=== PATIENT | male | born 1945 | race Caucasian/White ===

== ENCOUNTER 2020-10-04 18:23 | Inpatient (IN) ==
[2020-10-04 19:51] LABS: ABS Basophils 0.1 10^3/ul (0-0.2); ABS Eosinophils 0.1 10^3/ul (0-0.6); ABS Lymphocytes 0.5 10^3/ul (1.0-4.8); ABS Monocytes 1.2 10^3/ul (0-0.8); ABS Neutrophils 12.2 10^3/ul (1.5-7.7); Eosinophil % 0.9 %; Hematocrit 38 % (42-52); Hemoglobin 13.1 g/dL (14.0-18.0); Lymphocyte % 3.3 %; Mean Corpuscular HGB Conc 34 g/dL (31-36); Mean Corpuscular Hemoglobin 31 pg (27-31); Mean Corpuscular Volume 92 fL (80-94); Mean Platelet Volume 8.4 fL (7.4-10.4); Platelet Count 198 10^3/uL (150-450); Red Blood Count 4.19 10^6 /uL (4.18-5.48); Red Cell Distribution Width 15 % (10-15)
[2020-10-04 20:02] LABS: INR 1.22 (0.82-1.09)
[2020-10-04 20:04] LABS: ALT 18 U/L (7-52); AST 16 U/L (13-39); Albumin 3.8 g/dL (3.2-5.2); Albumin/Globulin Ratio 1.2 (1-3); Alkaline Phosphatase 54 U/L (34-104); Anion Gap 11 mmol/L (2-11); Blood Urea Nitrogen 16 mg/dL (6-24); C Reactive Protein 108.05 mg/L (<8.01); CO2 Carbon Dioxide 23 mmol/L (22-32); Calcium 9.1 mg/dL (8.6-10.3); Chloride 102 mmol/L (101-111); EGFR African American 99.5 (>60); EGFR Non-African American 82.3 (>60); Globulin 3.2 g/dL (2-4); Glucose 160 mg/dL (70-100); Magnesium 1.6 mg/dL (1.9-2.7); Potassium 3.5 mmol/L (3.5-5.0); Sodium 136 mmol/L (135-145)
[2020-10-04 20:10] LABS: Troponin I 0.14 ng/mL (<0.03)
[2020-10-04] MEDS ORDERED: Magnesium Sulfate 2 gm BAG 2 GM/50 ML BAG IVPB ONE (20:17)
[2020-10-04] MEDS ORDERED: Potassium Chlor 20 meq TAB.ER PO ONE (20:19)
[2020-10-04] MEDS ORDERED: Iodixanol (CONTRAST) 320 MG/ML 100 ML SDV IV ONE (20:21)
[2020-10-04] MEDS ORDERED: Ondansetron 4 mg VIAL 2 MG/ML 2 ml VIAL IV PRN (22:19)
[2020-10-04] MEDS ORDERED: Furosemide 40 mg/4 ml IV VIAL IV SLOW PU ONE (22:28)
[2020-10-04] MEDS ORDERED: Heparin DRIP 25,000 UNITS BAG 25,000 UNITS/500 ML BAG IV SCH (22:30)
[2020-10-04] MEDS ORDERED: Cefepime 2 GM IV - ED ONCE IV ONE (22:30)
[2020-10-04] MEDS ORDERED: Dextrose 50% Syringe 50 ml 25 GM/50 ML SYRINGE IV PUSH PRN (22:38)
[2020-10-04] MEDS ORDERED: Albuterol HFA INHALER 8 gm MDI INH PRN (22:38)
[2020-10-04] MEDS ORDERED: FLUTICASONE PROPIONATE INH SCH (22:45)
[2020-10-04] MEDS ORDERED: [UNRECOGNIZED DRUG - OTHER] INH SCH (22:45)
[2020-10-04] MEDS ORDERED: SALMETEROL INH SCH (22:45)
[2020-10-04] MEDS ORDERED: Vancomycin 2,000 MG in NS 0.9% 500 ml BAG 500 ML IVPB ONE (23:00)
[2020-10-05] MEDS: Heparin 5000 UNITS/ML 1 mL VIAL IV SCH ×2 (01:31→07:47)
[2020-10-05] MEDS: Insulin GLARGINE 100 un/ml 10 ml VIAL SUBCUT SCH ×2 (02:32→17:46)
[2020-10-05] MEDS ORDERED: Vancomycin per Pharmacy 1 EA NOTE FOLLOW UP PRN (04:19)
[2020-10-05 05:26] LABS: Urine Appearance Clear; Urine Bilirubin Negative (Negative); Urine Blood 1+ (Negative); Urine Color Straw; Urine Glucose Negative (Negative); Urine Ketones Negative (Negative); Urine Nitrite Negative (Negative); Urine Protein 2+(100 mg/dL) (Negative); Urine Specific Gravity 1.013 (1.002-1.030); Urine Urobilinogen Negative (Negative)
[2020-10-05 05:39] LABS: Urine Bacteria Absent (Absent); Urine Red Blood Cell Trace(0-2/hpf) (Absent); Urine Squamous Epithelial Cell Present (Absent); Urine White Blood Cell Absent (Absent)
[2020-10-05 06:51] LABS: ABS Basophils 0.1 10^3/ul (0-0.2); ABS Eosinophils 0.1 10^3/ul (0-0.6); ABS Lymphocytes 0.8 10^3/ul (1.0-4.8); ABS Monocytes 0.9 10^3/ul (0-0.8); ABS Neutrophils 9.5 10^3/ul (1.5-7.7); Eosinophil % 0.9 %; Hematocrit 35 % (42-52); Hemoglobin 12.1 g/dL (14.0-18.0); Lymphocyte % 7.3 %; Mean Corpuscular HGB Conc 35 g/dL (31-36); Mean Corpuscular Hemoglobin 31 pg (27-31); Mean Corpuscular Volume 90 fL (80-94); Mean Platelet Volume 8.5 fL (7.4-10.4); Platelet Count 180 10^3/uL (150-450); Red Cell Distribution Width 15 % (10-15); White Blood Count 11.4 10^3/uL (3.5-10.8)
[2020-10-05 07:09] LABS: EGFR African American 102.2 (>60); EGFR Non-African American 84.4 (>60)
[2020-10-05 07:12] LABS: ALT 16 U/L (7-52); AST 14 U/L (13-39); Albumin 3.6 g/dL (3.2-5.2); Albumin/Globulin Ratio 1.2 (1-3); Alkaline Phosphatase 53 U/L (34-104); Anion Gap 7 mmol/L (2-11); Blood Urea Nitrogen 13 mg/dL (6-24); C Reactive Protein 150.04 mg/L (<8.01); CO2 Carbon Dioxide 25 mmol/L (22-32); Calcium 8.6 mg/dL (8.6-10.3); Chloride 102 mmol/L (101-111); Cholesterol 131 mg/dL; EGFR African American 103.5 (>60); EGFR Non-African American 85.5 (>60); Globulin 2.9 g/dL (2-4); Glucose 157 mg/dL (70-100); HDL Cholesterol 34.8 mg/dL; Indirect Bilirubin 0.9 mg/dL (0.3-1.0); LDL Cholesterol 77 mg/dL; Potassium 3.4 mmol/L (3.5-5.0); Sodium 134 mmol/L (135-145); Total Protein 6.5 g/dL (6.4-8.9); Triglycerides 97 mg/dL
[2020-10-05 07:20] LABS: Troponin I 0.16 ng/mL (<0.03)
[2020-10-05] MEDS: Mometasone/Formoter 100/5 MDI INH SCH ×2 (07:29→19:05)
[2020-10-05] MEDS: Vancomycin 750 MG in NS 0.9% 250 ML IVPB SCH ×2 (09:41→17:43)
[2020-10-05] MEDS ORDERED: Furosemide 20 mg/2 ml IV VIAL IV ONE (10:09)
[2020-10-05 11:34] LABS: Creatine Kinase 77 U/L (10-223)
[2020-10-05] MEDS: Cefepime 2 GM in Dextrose 2 GM/50 ML BAG IV SCH ×2 (12:06→23:35)
[2020-10-05 15:42] LABS: Troponin I 0.13 ng/mL (<0.03)
[2020-10-05] MEDS: Dexamethasone IV 4 MG/ML VIAL 1 ml VIAL IV SLOW PU SCH (17:09)
[2020-10-05 18:31] LABS: Anion Gap 12 mmol/L (2-11); Blood Urea Nitrogen 18 mg/dL (6-24); CO2 Carbon Dioxide 20 mmol/L (22-32); Calcium 8.7 mg/dL (8.6-10.3); Chloride 100 mmol/L (101-111); EGFR African American 87.1 (>60); Glucose 160 mg/dL (70-100); Sodium 132 mmol/L (135-145)
[2020-10-05] MEDS: Enoxaparin 60 MG/0.6 ML SYR SUBCUT SCH (20:39)
[2020-10-06] MEDS: Vancomycin 750 MG in NS 0.9% 250 ML IVPB SCH ×2 (01:51→11:15)
[2020-10-06] MEDS: Mometasone/Formoter 100/5 MDI INH SCH ×2 (07:18→20:01)
[2020-10-06] MEDS: Dexamethasone IV 4 MG/ML VIAL 1 ml VIAL IV SLOW PU SCH (08:16)
[2020-10-06] MEDS: Enoxaparin 60 MG/0.6 ML SYR SUBCUT SCH ×2 (08:16→21:06)
[2020-10-06] MEDS ORDERED: Vancomycin Trough Check NOTE FOLLOW UP ONE (09:30)
[2020-10-06 09:57] LABS: ABS Lymphocytes 0.6 10^3/ul (1.0-4.8); ABS Monocytes 0.5 10^3/ul (0-0.8); ABS Neutrophils 10.4 10^3/ul (1.5-7.7); Hematocrit 38 % (42-52); Mean Corpuscular HGB Conc 34 g/dL (31-36); Mean Corpuscular Hemoglobin 31 pg (27-31); Mean Corpuscular Volume 91 fL (80-94); Mean Platelet Volume 8.4 fL (7.4-10.4); Platelet Count 200 10^3/uL (150-450); Red Blood Count 4.19 10^6 /uL (4.18-5.48); Red Cell Distribution Width 15 % (10-15); White Blood Count 11.4 10^3/uL (3.5-10.8)
[2020-10-06 10:23] LABS: Albumin 3.8 g/dL (3.2-5.2); Albumin/Globulin Ratio 1.1 (1-3); Calcium 9.1 mg/dL (8.6-10.3); EGFR African American 95.8 (>60); EGFR Non-African American 79.2 (>60); Globulin 3.4 g/dL (2-4); Potassium 3.6 mmol/L (3.5-5.0); Total Protein 7.2 g/dL (6.4-8.9)
[2020-10-06] MEDS: Cefepime 2 GM in Dextrose 2 GM/50 ML BAG IV SCH (15:00)
[2020-10-06] MEDS ORDERED: Vancomycin 1000 MG in NS 0.9% 250 ML IVPB SCH (18:00)
[2020-10-06] MEDS: Insulin GLARGINE 100 un/ml 10 ml VIAL SUBCUT SCH (18:09)
[2020-10-07] MEDS: Mometasone/Formoter 100/5 MDI INH SCH ×2 (07:42→20:31)
[2020-10-07] MEDS ORDERED: Perflutren Lipid Microsphere 3 ML VIAL ONE (08:13)
[2020-10-07] MEDS: Dexamethasone IV 4 MG/ML VIAL 1 ml VIAL IV SLOW PU SCH (08:54)
[2020-10-07] MEDS: Enoxaparin 60 MG/0.6 ML SYR SUBCUT SCH (08:55)
[2020-10-07 09:56] LABS: ABS Eosinophils 0.1 10^3/ul (0-0.6); ABS Lymphocytes 1.1 10^3/ul (1.0-4.8); ABS Monocytes 0.9 10^3/ul (0-0.8); ABS Neutrophils 11.9 10^3/ul (1.5-7.7); Eosinophil % 0.8 %; Hematocrit 41 % (42-52); Hemoglobin 13.8 g/dL (14.0-18.0); Mean Corpuscular HGB Conc 34 g/dL (31-36); Mean Corpuscular Hemoglobin 31 pg (27-31); Mean Corpuscular Volume 92 fL (80-94); Mean Platelet Volume 8.9 fL (7.4-10.4); Platelet Count 237 10^3/uL (150-450); Red Blood Count 4.45 10^6 /uL (4.18-5.48); Red Cell Distribution Width 15 % (10-15)
[2020-10-07 10:14] LABS: Albumin 3.9 g/dL (3.2-5.2); Albumin/Globulin Ratio 1.1 (1-3); Calcium 9.2 mg/dL (8.6-10.3); EGFR African American 99.5 (>60); EGFR Non-African American 82.3 (>60); Globulin 3.4 g/dL (2-4); Potassium 3.5 mmol/L (3.5-5.0); Total Bilirubin 0.7 mg/dL (0.2-1.0); Total Protein 7.3 g/dL (6.4-8.9)
[2020-10-07] MEDS: Insulin GLARGINE 100 un/ml 10 ml VIAL SUBCUT SCH ×2 (22:37→23:05)
[2020-10-08 05:49] LABS: ABS Eosinophils 0.2 10^3/ul (0-0.6); ABS Lymphocytes 1.2 10^3/ul (1.0-4.8); ABS Monocytes 0.9 10^3/ul (0-0.8); ABS Neutrophils 9.5 10^3/ul (1.5-7.7); Eosinophil % 1.7 %; Hematocrit 38 % (42-52); Hemoglobin 12.6 g/dL (14.0-18.0); Lymphocyte % 10.4 %; Mean Corpuscular HGB Conc 34 g/dL (31-36); Mean Corpuscular Hemoglobin 31 pg (27-31); Mean Corpuscular Volume 91 fL (80-94); Mean Platelet Volume 8.7 fL (7.4-10.4); Platelet Count 235 10^3/uL (150-450); Red Blood Count 4.12 10^6 /uL (4.18-5.48); Red Cell Distribution Width 15 % (10-15); White Blood Count 11.9 10^3/uL (3.5-10.8)
[2020-10-08 06:06] LABS: Albumin 3.6 g/dL (3.2-5.2); Albumin/Globulin Ratio 1.1 (1-3); Calcium 8.6 mg/dL (8.6-10.3); EGFR African American 117.4 (>60); Globulin 3.2 g/dL (2-4); Potassium 3.6 mmol/L (3.5-5.0); Total Bilirubin 0.5 mg/dL (0.2-1.0); Total Protein 6.8 g/dL (6.4-8.9)
[2020-10-08] MEDS: Mometasone/Formoter 100/5 MDI INH SCH ×2 (07:56→20:49)
[2020-10-08] MEDS: Dexamethasone IV 4 MG/ML VIAL 1 ml VIAL IV SLOW PU SCH (08:48)
[2020-10-08] MEDS ORDERED: Vancomycin Trough Check NOTE FOLLOW UP ONE (09:30)
[2020-10-08] MEDS: Insulin GLARGINE 100 un/ml 10 ml VIAL SUBCUT SCH (19:57)
[2020-10-09 05:08] LABS: Hematocrit 40 % (42-52); Hemoglobin 13.4 g/dL (14.0-18.0); Mean Corpuscular HGB Conc 33 g/dL (31-36); Mean Corpuscular Hemoglobin 30 pg (27-31); Mean Corpuscular Volume 91 fL (80-94); Mean Platelet Volume 8.7 fL (7.4-10.4); Platelet Count 256 10^3/uL (150-450); Red Blood Count 4.41 10^6 /uL (4.18-5.48); Red Cell Distribution Width 16 % (10-15); White Blood Count 11.5 10^3/uL (3.5-10.8)
[2020-10-09 05:46] LABS: ABS Basophils 0.1 10^3/ul (0-0.2); ABS Eosinophils 0.3 10^3/ul (0-0.6); ABS Lymphocytes 1.2 10^3/ul (1.0-4.8); ABS Monocytes 0.9 10^3/ul (0-0.8); Eosinophil % 2.5 %; Lymphocyte % 10.8 %; Nucleated Red Blood Cells % 0.1
[2020-10-09] MEDS: Mometasone/Formoter 100/5 MDI INH SCH (08:28)
[2020-10-09] MEDS ORDERED: Dexamethasone IV 4 MG/ML VIAL 1 ml VIAL PO SCH (09:00)
[2020-10-09 09:58] VITALS: BP 143/78
== END 2020-10-09 10:08 | disposition swing bed (61) | DRG 137 ==
LOC: ED 18:23 → MED 22:19
PROVIDERS: ADMIT Internal Medicine Interventional Cardiology; ATTEND Student in an Organized Health Care Education/Training Program

== ENCOUNTER 2020-10-09 10:40 | Inpatient (IN) ==
[2020-10-09] MEDS ORDERED: Dextrose 50% Syringe 50 ml 25 GM/50 ML SYRINGE IV PUSH PRN (10:59)
[2020-10-09] MEDS ORDERED: Albuterol HFA INHALER 8 gm MDI INH PRN (11:06)
[2020-10-09] MEDS: Insulin GLARGINE 100 un/ml 10 ml VIAL SUBCUT SCH (17:36)
[2020-10-09] MEDS: Mometasone/Formoter 100/5 MDI INH SCH (20:46)
[2020-10-09] MEDS ORDERED: hydrALAZINE 20 mg/ml 1 ML Vial IV IV SLOW PU PRN (21:52)
[2020-10-10] MEDS: Mometasone/Formoter 100/5 MDI INH SCH ×2 (07:25→20:07)
[2020-10-10] MEDS: Insulin GLARGINE 100 un/ml 10 ml VIAL SUBCUT SCH (18:15)
[2020-10-10] MEDS: Nystatin TOP POWDER 15 GM BTL TOPICAL SCH (21:01)
[2020-10-11] MEDS: Mometasone/Formoter 100/5 MDI INH SCH ×2 (07:31→19:37)
[2020-10-11] MEDS: Nystatin TOP POWDER 15 GM BTL TOPICAL SCH ×2 (08:46→20:52)
[2020-10-11] MEDS: Insulin GLARGINE 100 un/ml 10 ml VIAL SUBCUT SCH (17:44)
[2020-10-12] MEDS: Nystatin TOP POWDER 15 GM BTL TOPICAL SCH ×2 (07:40→21:07)
[2020-10-12] MEDS: Mometasone/Formoter 100/5 MDI INH SCH ×2 (07:47→19:25)
[2020-10-12] MEDS: Insulin GLARGINE 100 un/ml 10 ml VIAL SUBCUT SCH (17:31)
[2020-10-13] MEDS: Mometasone/Formoter 100/5 MDI INH SCH ×2 (08:16→19:17)
[2020-10-13] MEDS: Nystatin TOP POWDER 15 GM BTL TOPICAL SCH ×2 (11:47→20:39)
[2020-10-13] MEDS: Insulin GLARGINE 100 un/ml 10 ml VIAL SUBCUT SCH (17:19)
[2020-10-14] MEDS: Mometasone/Formoter 100/5 MDI INH SCH ×2 (08:22→19:11)
[2020-10-14] MEDS: Nystatin TOP POWDER 15 GM BTL TOPICAL SCH ×2 (08:37→20:29)
[2020-10-14] MEDS: Insulin GLARGINE 100 un/ml 10 ml VIAL SUBCUT SCH (17:29)
[2020-10-15 05:56] LABS: Hematocrit 42 % (42-52); Hemoglobin 14.4 g/dL (14.0-18.0); Mean Platelet Volume 8.4 fL (7.4-10.4); Platelet Count 284 10^3/uL (150-450)
[2020-10-15 06:42] LABS: EGFR African American 104.9 (>60); EGFR Non-African American 86.7 (>60)
[2020-10-15] MEDS: Mometasone/Formoter 100/5 MDI INH SCH (07:40)
[2020-10-15 08:29] VITALS: BP 159/106
[2020-10-15] MEDS: Nystatin TOP POWDER 15 GM BTL TOPICAL SCH (08:37)
== END 2020-10-15 10:30 | disposition home or self-care (01) | DRG 137 ==
LOC: MED 10:40
PROVIDERS: ADMIT Student in an Organized Health Care Education/Training Program; ATTEND Internal Medicine

== ENCOUNTER 2021-01-18 10:39 | Inpatient (IN) ==
[2021-01-18 11:33] LABS: ABS Basophils 0.1 10^3/ul (0-0.2); ABS Eosinophils 0.2 10^3/ul (0-0.6); ABS Lymphocytes 0.9 10^3/ul (1.0-4.8); ABS Monocytes 0.9 10^3/ul (0-0.8); ABS Neutrophils 7.5 10^3/ul (1.5-7.7); Eosinophil % 1.6 %; Hematocrit 41 % (42-52); Hemoglobin 13.5 g/dL (14.0-18.0); Lymphocyte % 9.5 %; Mean Corpuscular HGB Conc 33 g/dL (31-36); Mean Corpuscular Hemoglobin 31 pg (27-31); Mean Corpuscular Volume 93 fL (80-94); Mean Platelet Volume 8.7 fL (7.4-10.4); Platelet Count 234 10^3/uL (150-450); Red Blood Count 4.41 10^6 /uL (4.18-5.48); Red Cell Distribution Width 16 % (10-15); White Blood Count 9.6 10^3/uL (3.5-10.8)
[2021-01-18 11:52] LABS: Albumin 3.8 g/dL (3.2-5.2); Albumin/Globulin Ratio 1.2 (1-3); EGFR African American 78.7 (>60); EGFR Non-African American 65.1 (>60); Globulin 3.3 g/dL (2-4); Magnesium 1.9 mg/dL (1.9-2.7); Potassium 3.3 mmol/L (3.5-5.0); Total Bilirubin 0.8 mg/dL (0.2-1.0); Total Protein 7.1 g/dL (6.4-8.9)
[2021-01-18 12:31] LABS: TSH Ultra Thyroid Stim Horm 3.91 mcIU/mL (0.34-5.60)
[2021-01-18] MEDS ORDERED: Potassium Chlor 20 meq TAB.ER PO ONE (13:05)
[2021-01-18] MEDS ORDERED: Dextrose 50% Syringe 50 ml 25 GM/50 ML SYRINGE IV PUSH PRN (18:16)
[2021-01-18] MEDS: Nystatin TOP POWDER 15 GM BTL TOPICAL SCH (21:37)
[2021-01-18] MEDS: hydrALAZINE 20 mg/ml 1 ML Vial IV IV SLOW PU PRN (23:29)
[2021-01-19 01:45] LABS: Urine Appearance Clear; Urine Bilirubin Negative (Negative); Urine Blood Negative (Negative); Urine Color Yellow; Urine Glucose Negative (Negative); Urine Ketones Negative (Negative); Urine Nitrite Negative (Negative); Urine Protein 3+(>=500 mg/dL) (Negative); Urine Specific Gravity 1.012 (1.002-1.030); Urine Urobilinogen Negative (Negative)
[2021-01-19 01:48] LABS: Urine Bacteria Absent (Absent); Urine Red Blood Cell Trace(0-2/hpf) (Absent); Urine Squamous Epithelial Cell Present (Absent); Urine White Blood Cell Trace(0-5/hpf) (Absent)
[2021-01-19 04:59] LABS: ABS Basophils 0.1 10^3/ul (0-0.2); ABS Eosinophils 0.3 10^3/ul (0-0.6); ABS Monocytes 0.9 10^3/ul (0-0.8); Eosinophil % 2.5 %; Hematocrit 44 % (42-52); Hemoglobin 14.6 g/dL (14.0-18.0); Lymphocyte % 9.8 %; Mean Corpuscular HGB Conc 33 g/dL (31-36); Mean Corpuscular Hemoglobin 32 pg (27-31); Mean Corpuscular Volume 95 fL (80-94); Mean Platelet Volume 8.9 fL (7.4-10.4); Nucleated Red Blood Cells % 0.1; Platelet Count 217 10^3/uL (150-450); Red Blood Count 4.62 10^6 /uL (4.18-5.48); Red Cell Distribution Width 17 % (10-15); White Blood Count 10.3 10^3/uL (3.5-10.8)
[2021-01-19 05:02] LABS: PCO2 Arterial 36 mmHg (35-45); PO2 Arterial 121 mmHg (80-100)
[2021-01-19 05:19] LABS: ALT 56 U/L (7-52); Albumin/Globulin Ratio 1.1 (1-3); Alkaline Phosphatase 59 U/L (35-149); Blood Urea Nitrogen 22 mg/dL (6-24); CO2 Carbon Dioxide 24 mmol/L (22-32); Chloride 106 mmol/L (101-111); EGFR African American 74.8 (>60); EGFR Non-African American 61.8 (>60); Globulin 3.5 g/dL (2-4); Glucose 115 mg/dL (70-100); Sodium 139 mmol/L (135-145); Total Protein 7.5 g/dL (6.4-8.9)
[2021-01-19 05:26] LABS: Troponin I 0.19 ng/mL (<0.03)
[2021-01-19] MEDS: hydrALAZINE 20 mg/ml 1 ML Vial IV IV SLOW PU PRN (05:36)
[2021-01-19 06:24] LABS: Vitamin B12 668 pg/mL (180-914)
[2021-01-19 06:59] LABS: Prolactin 11.6 ng/mL (1.0-20.0)
[2021-01-19 07:02] LABS: AST 37 U/L (13-39); Anion Gap 9 mmol/L (2-11)
[2021-01-19] MEDS ORDERED: hydrALAZINE 20 mg/ml 1 ML Vial IV IV SLOW PU ONE (08:02)
[2021-01-19] MEDS ORDERED: LORazepam 2 mg VIAL 1 ml ONE (08:07)
[2021-01-19] MEDS ORDERED: Lorazepam PYXIS KEY PRN (08:09)
[2021-01-19] MEDS ORDERED: LORazepam 2 mg VIAL 1 ml IV PUSH ONE ×2 (08:09→13:43)
[2021-01-19] MEDS ORDERED: Iodixanol (CONTRAST) 320 MG/ML 100 ML SDV IV SCH (08:23)
[2021-01-19 08:24] LABS: ABS Basophils 0.1 10^3/ul (0-0.2); ABS Eosinophils 0.2 10^3/ul (0-0.6); ABS Lymphocytes 0.9 10^3/ul (1.0-4.8); ABS Monocytes 0.8 10^3/ul (0-0.8); ABS Neutrophils 7.9 10^3/ul (1.5-7.7); Eosinophil % 2.4 %; Hematocrit 44 % (42-52); Hemoglobin 14.5 g/dL (14.0-18.0); Lymphocyte % 8.8 %; Mean Corpuscular HGB Conc 33 g/dL (31-36); Mean Corpuscular Hemoglobin 31 pg (27-31); Mean Corpuscular Volume 94 fL (80-94); Mean Platelet Volume 8.7 fL (7.4-10.4); Platelet Count 217 10^3/uL (150-450); Red Blood Count 4.64 10^6 /uL (4.18-5.48); Red Cell Distribution Width 17 % (10-15); White Blood Count 9.9 10^3/uL (3.5-10.8)
[2021-01-19 08:38] LABS: ALT 54 U/L (7-52); AST 31 U/L (13-39); Albumin 3.9 g/dL (3.2-5.2); Albumin/Globulin Ratio 1.2 (1-3); Alkaline Phosphatase 68 U/L (35-149); Anion Gap 7 mmol/L (2-11); Blood Urea Nitrogen 20 mg/dL (6-24); CO2 Carbon Dioxide 27 mmol/L (22-32); Calcium 9.3 mg/dL (8.6-10.3); Chloride 108 mmol/L (101-111); Creatine Kinase 50 U/L (10-223); EGFR African American 77.1 (>60); EGFR Non-African American 63.7 (>60); Globulin 3.3 g/dL (2-4); Glucose 123 mg/dL (70-100); Potassium 3.6 mmol/L (3.5-5.0); Sodium 142 mmol/L (135-145); Total Protein 7.2 g/dL (6.4-8.9)
[2021-01-19] MEDS ORDERED: Fluticasone/Vilanterol MDI(NF) 100/25 MDI INH SCH (09:00)
[2021-01-19] MEDS ORDERED: niCARdipine 0.1MG/ML IVPREMIX 20 MG/200 ML BAG IV SCH (09:00)
[2021-01-19 09:04] LABS: Troponin I 0.19 ng/mL (<0.03)
[2021-01-19] MEDS: Mometasone/Formoter 100/5 MDI INH SCH ×2 (09:45→21:00)
[2021-01-19] MEDS: Insulin GLARGINE 100 un/ml 10 ml VIAL SUBCUT SCH (12:28)
[2021-01-19] MEDS: Isosorbide Mononit ER 60mg TAB PO SCH (12:28)
[2021-01-19] MEDS: Nystatin TOP POWDER 15 GM BTL TOPICAL SCH ×2 (12:28→22:44)
[2021-01-19 13:18] LABS: PCO2 Arterial 34 mmHg (35-45); PO2 Arterial 74 mmHg (80-100)
[2021-01-19] MEDS: levETIRAcetam 1000MG IVPREMIX 1,000 MG/100 ML BAG IVPB SCH (13:39)
[2021-01-19 16:57] LABS: Urine Appearance Clear; Urine Bilirubin Negative (Negative); Urine Blood Negative (Negative); Urine Color Yellow; Urine Glucose Negative (Negative); Urine Ketones Negative (Negative); Urine Nitrite Negative (Negative); Urine Protein 2+(100 mg/dL) (Negative); Urine Specific Gravity 1.013 (1.002-1.030); Urine Urobilinogen Negative (Negative)
[2021-01-19 17:02] LABS: INR 1.55 (0.86-1.15)
[2021-01-19 17:03] LABS: Urine Bacteria Absent (Absent); Urine Red Blood Cell Trace(0-2/hpf) (Absent); Urine White Blood Cell Trace(0-5/hpf) (Absent)
[2021-01-19 17:13] LABS: Ammonia 23 mcmol/L (16-53)
[2021-01-19 17:17] LABS: BNP 684 pg/mL (<=100)
[2021-01-19 17:18] LABS: Troponin I 0.18 ng/mL (<0.03)
[2021-01-19 17:32] LABS: Thyroid Peroxidase Antibodies 1.86 IU/mL (<9)
[2021-01-19 19:00] LABS: Glucose 112 mg/dL (70-100)
[2021-01-19] MEDS ORDERED: Furosemide 40 mg/4 ml IV VIAL IV ONE (22:00)
[2021-01-19] MEDS: niCARdipine 0.1MG/ML IVPREMIX 20 MG/200 ML BAG IV SCH (23:30)
[2021-01-20] MEDS: levETIRAcetam 1000MG IVPREMIX 1,000 MG/100 ML BAG IVPB SCH ×2 (01:10→14:01)
[2021-01-20] MEDS: niCARdipine 0.1MG/ML IVPREMIX 20 MG/200 ML BAG IV SCH (02:28)
[2021-01-20 05:47] LABS: ABS Basophils 0.1 10^3/ul (0-0.2); ABS Eosinophils 0.2 10^3/ul (0-0.6); ABS Lymphocytes 0.7 10^3/ul (1.0-4.8); ABS Monocytes 0.9 10^3/ul (0-0.8); ABS Neutrophils 9.6 10^3/ul (1.5-7.7); Eosinophil % 1.9 %; Hematocrit 43 % (42-52); Hemoglobin 14.7 g/dL (14.0-18.0); Mean Corpuscular HGB Conc 34 g/dL (31-36); Mean Corpuscular Hemoglobin 32 pg (27-31); Mean Corpuscular Volume 93 fL (80-94); Mean Platelet Volume 8.7 fL (7.4-10.4); Platelet Count 224 10^3/uL (150-450); Red Blood Count 4.66 10^6 /uL (4.18-5.48); Red Cell Distribution Width 16 % (10-15); White Blood Count 11.5 10^3/uL (3.5-10.8)
[2021-01-20 06:08] LABS: Calcium 8.9 mg/dL (8.6-10.3); EGFR African American 96.8 (>60); Magnesium 1.9 mg/dL (1.9-2.7); Phosphorus 3.8 mg/dL (2.5-5.0); Potassium 3.3 mmol/L (3.5-5.0)
[2021-01-20 06:11] LABS: INR 1.63 (0.86-1.15)
[2021-01-20] MEDS ORDERED: Magnesium Sulfate 2 gm BAG 2 GM/50 ML BAG IVPB ONE (06:26)
[2021-01-20] MEDS: KCL 20 MEQ/100 ML IVPREMIX 20 MEQ/100 ML BAG IV SCH ×3 (06:40→13:59)
[2021-01-20] MEDS: hydrALAZINE 20 mg/ml 1 ML Vial IV IV SLOW PU PRN ×2 (06:40→16:39)
[2021-01-20] MEDS ORDERED: Perflutren Lipid Microsphere 3 ML VIAL ONE (08:20)
[2021-01-20] MEDS: Mometasone/Formoter 100/5 MDI INH SCH ×2 (09:18→19:13)
[2021-01-20] MEDS ORDERED: Furosemide 40 mg/4 ml IV VIAL IV ONE (09:37)
[2021-01-20] MEDS: Insulin GLARGINE 100 un/ml 10 ml VIAL SUBCUT SCH (10:06)
[2021-01-20] MEDS: Nystatin TOP POWDER 15 GM BTL TOPICAL SCH ×2 (10:08→21:17)
[2021-01-20] MEDS ORDERED: Gadoteridol (CONTRAST) 279.3 MG/ML 10 ML IV ONE (12:29)
[2021-01-20] MEDS ORDERED: Gadoteridol (CONTRAST) 279.3 MG/ML 10 ML IV SCH (13:00)
[2021-01-20] MEDS: Isosorbide Mononit ER 60mg TAB PO SCH (19:03)
[2021-01-21] MEDS: hydrALAZINE 20 mg/ml 1 ML Vial IV IV SLOW PU PRN (01:21)
[2021-01-21] MEDS: levETIRAcetam 1000MG IVPREMIX 1,000 MG/100 ML BAG IVPB SCH (01:21)
[2021-01-21] MEDS: Mometasone/Formoter 100/5 MDI INH SCH ×2 (07:48→20:01)
[2021-01-21 07:55] LABS: PCO2 Arterial 36 mmHg (35-45); PO2 Arterial 108 mmHg (80-100)
[2021-01-21 08:16] LABS: ABS Basophils 0.1 10^3/ul (0-0.2); ABS Eosinophils 0.2 10^3/ul (0-0.6); ABS Lymphocytes 0.8 10^3/ul (1.0-4.8); ABS Neutrophils 8.9 10^3/ul (1.5-7.7); Hematocrit 46 % (42-52); Hemoglobin 15.1 g/dL (14.0-18.0); Lymphocyte % 7.6 %; Mean Corpuscular HGB Conc 33 g/dL (31-36); Mean Corpuscular Hemoglobin 31 pg (27-31); Mean Corpuscular Volume 94 fL (80-94); Nucleated Red Blood Cells % 0.1; Platelet Count 239 10^3/uL (150-450); Red Cell Distribution Width 17 % (10-15)
[2021-01-21 08:32] LABS: Albumin 3.7 g/dL (3.2-5.2); Magnesium 2.1 mg/dL (1.9-2.7); Potassium 3.4 mmol/L (3.5-5.0); Total Bilirubin 1.1 mg/dL (0.2-1.0)
[2021-01-21 08:51] LABS: Prolactin 13.8 ng/mL (1.0-20.0)
[2021-01-21 09:16] LABS: Calcium 9.1 mg/dL (8.6-10.3)
[2021-01-21 09:21] LABS: Albumin/Globulin Ratio 1.1 (1-3); EGFR African American 93.3 (>60); EGFR Non-African American 77.1 (>60); Globulin 3.4 g/dL (2-4); Total Protein 7.1 g/dL (6.4-8.9)
[2021-01-21] MEDS: Insulin GLARGINE 100 un/ml 10 ml VIAL SUBCUT SCH (09:34)
[2021-01-21] MEDS: Nystatin TOP POWDER 15 GM BTL TOPICAL SCH ×2 (09:35→20:59)
[2021-01-22] MEDS ORDERED: Haloperidol 5 mg/ml SDV IV/IM 5 MG/ML AMP IV SLOW PU PRN (00:45)
[2021-01-22] MEDS ORDERED: Haloperidol 5 mg/ml SDV IV/IM 5 MG/ML AMP ONE (00:51)
[2021-01-22 06:49] LABS: ABS Basophils 0.1 10^3/ul (0-0.2); ABS Eosinophils 0.3 10^3/ul (0-0.6); ABS Lymphocytes 0.8 10^3/ul (1.0-4.8); ABS Neutrophils 7.7 10^3/ul (1.5-7.7); Eosinophil % 2.9 %; Hematocrit 43 % (42-52); Hemoglobin 14.4 g/dL (14.0-18.0); Lymphocyte % 8.5 %; Mean Corpuscular HGB Conc 34 g/dL (31-36); Mean Corpuscular Hemoglobin 31 pg (27-31); Mean Corpuscular Volume 93 fL (80-94); Mean Platelet Volume 8.9 fL (7.4-10.4); Nucleated Red Blood Cells % 0.1; Platelet Count 220 10^3/uL (150-450); Red Blood Count 4.58 10^6 /uL (4.18-5.48); Red Cell Distribution Width 17 % (10-15); White Blood Count 9.9 10^3/uL (3.5-10.8)
[2021-01-22 07:04] LABS: Calcium 8.9 mg/dL (8.6-10.3); EGFR African American 96.8 (>60); Potassium 3.3 mmol/L (3.5-5.0)
[2021-01-22] MEDS: Mometasone/Formoter 100/5 MDI INH SCH ×2 (07:51→23:04)
[2021-01-22] MEDS: KCL 20 MEQ/100 ML IVPREMIX 20 MEQ/100 ML BAG IV SCH ×3 (08:57→20:20)
[2021-01-22] MEDS: Insulin GLARGINE 100 un/ml 10 ml VIAL SUBCUT SCH (11:00)
[2021-01-22] MEDS: Nystatin TOP POWDER 15 GM BTL TOPICAL SCH (11:14)
[2021-01-23] MEDS: hydrALAZINE 20 mg/ml 1 ML Vial IV IV SLOW PU PRN (00:21)
[2021-01-23] MEDS: Nystatin TOP POWDER 15 GM BTL TOPICAL SCH ×3 (00:25→23:38)
[2021-01-23 06:16] LABS: ABS Basophils 0.1 10^3/ul (0-0.2); ABS Eosinophils 0.4 10^3/ul (0-0.6); ABS Lymphocytes 0.9 10^3/ul (1.0-4.8); ABS Neutrophils 6.6 10^3/ul (1.5-7.7); Hematocrit 43 % (42-52); Lymphocyte % 10.5 %; Mean Corpuscular HGB Conc 33 g/dL (31-36); Mean Corpuscular Hemoglobin 31 pg (27-31); Mean Corpuscular Volume 94 fL (80-94); Mean Platelet Volume 8.8 fL (7.4-10.4); Platelet Count 223 10^3/uL (150-450); Red Blood Count 4.54 10^6 /uL (4.18-5.48); Red Cell Distribution Width 17 % (10-15)
[2021-01-23 06:28] LABS: Albumin 3.2 g/dL (3.2-5.2); Calcium 8.4 mg/dL (8.6-10.3); EGFR Non-African American 87.6 (>60); Globulin 3.1 g/dL (2-4); Potassium 3.6 mmol/L (3.5-5.0); Total Bilirubin 0.6 mg/dL (0.2-1.0); Total Protein 6.3 g/dL (6.4-8.9)
[2021-01-23] MEDS: Mometasone/Formoter 100/5 MDI INH SCH ×2 (08:30→22:33)
[2021-01-23] MEDS ORDERED: CALCIUM GLUCONATE 1GM/50ML NS 1 GM/50 ML BAG IV ONE (09:52)
[2021-01-23] MEDS: Insulin GLARGINE 100 un/ml 10 ml VIAL SUBCUT SCH (11:25)
[2021-01-24 07:30] LABS: Venous Bicarbonate HCO3 29.6 mmol/L (24-28)
[2021-01-24 07:45] LABS: Calcium 8.7 mg/dL (8.6-10.3); EGFR African American 92.1 (>60); EGFR Non-African American 76.2 (>60); Potassium 3.7 mmol/L (3.5-5.0)
[2021-01-24] MEDS: Insulin GLARGINE 100 un/ml 10 ml VIAL SUBCUT SCH (07:57)
[2021-01-24] MEDS: Mometasone/Formoter 100/5 MDI INH SCH ×2 (09:51→21:35)
[2021-01-24] MEDS: Nystatin TOP POWDER 15 GM BTL TOPICAL SCH (11:08)
[2021-01-24] MEDS: hydrALAZINE 20 mg/ml 1 ML Vial IV IV SLOW PU PRN ×2 (12:29→23:55)
[2021-01-25] MEDS: Nystatin TOP POWDER 15 GM BTL TOPICAL SCH ×3 (00:15→20:22)
[2021-01-25 05:19] LABS: Venous Bicarbonate HCO3 30.5 mmol/L (24-28)
[2021-01-25 05:31] LABS: ABS Basophils 0.1 10^3/ul (0-0.2); ABS Eosinophils 0.4 10^3/ul (0-0.6); ABS Lymphocytes 0.8 10^3/ul (1.0-4.8); ABS Monocytes 0.8 10^3/ul (0-0.8); ABS Neutrophils 7.7 10^3/ul (1.5-7.7); Eosinophil % 3.9 %; Hematocrit 44 % (42-52); Hemoglobin 14.5 g/dL (14.0-18.0); Lymphocyte % 8.5 %; Mean Corpuscular HGB Conc 33 g/dL (31-36); Mean Corpuscular Hemoglobin 31 pg (27-31); Mean Corpuscular Volume 95 fL (80-94); Mean Platelet Volume 8.7 fL (7.4-10.4); Nucleated Red Blood Cells % 0.2; Platelet Count 229 10^3/uL (150-450); Red Blood Count 4.63 10^6 /uL (4.18-5.48); Red Cell Distribution Width 16 % (10-15); White Blood Count 9.8 10^3/uL (3.5-10.8)
[2021-01-25 06:02] LABS: Calcium 8.7 mg/dL (8.6-10.3); Phosphorus 3.3 mg/dL (2.5-5.0); Potassium 3.6 mmol/L (3.5-5.0)
[2021-01-25] MEDS: Insulin GLARGINE 100 un/ml 10 ml VIAL SUBCUT SCH (07:56)
[2021-01-25] MEDS: Mometasone/Formoter 100/5 MDI INH SCH ×2 (08:27→20:01)
[2021-01-26] MEDS: hydrALAZINE 20 mg/ml 1 ML Vial IV IV SLOW PU PRN (08:01)
[2021-01-26] MEDS: Isosorbide Mononit ER 60mg TAB PO SCH (08:06)
[2021-01-26] MEDS: Insulin GLARGINE 100 un/ml 10 ml VIAL SUBCUT SCH (08:09)
[2021-01-26] MEDS: Mometasone/Formoter 100/5 MDI INH SCH ×2 (09:12→20:17)
[2021-01-26] MEDS: Nystatin TOP POWDER 15 GM BTL TOPICAL SCH ×2 (10:00→20:44)
[2021-01-27] MEDS: hydrALAZINE 20 mg/ml 1 ML Vial IV IV SLOW PU PRN (03:33)
[2021-01-27] MEDS: Isosorbide Mononit ER 60mg TAB PO SCH (07:48)
[2021-01-27] MEDS: Mometasone/Formoter 100/5 MDI INH SCH ×2 (08:29→20:35)
[2021-01-27] MEDS: Insulin GLARGINE 100 un/ml 10 ml VIAL SUBCUT SCH (09:51)
[2021-01-27] MEDS: Nystatin TOP POWDER 15 GM BTL TOPICAL SCH ×2 (09:51→20:41)
[2021-01-27] MEDS: Dextran 70/Hypromellose Tears Eye Drops 15 ml BTL (for Artificials Tears) BOTH EYES PRN (16:02)
[2021-01-28 05:39] LABS: INR 1.37 (0.86-1.15)
[2021-01-28] MEDS: Mometasone/Formoter 100/5 MDI INH SCH (08:00)
[2021-01-28] MEDS: Isosorbide Mononit ER 60mg TAB PO SCH (08:14)
[2021-01-28] MEDS: Dextran 70/Hypromellose Tears Eye Drops 15 ml BTL (for Artificials Tears) BOTH EYES PRN (08:15)
[2021-01-28] MEDS: Nystatin TOP POWDER 15 GM BTL TOPICAL SCH (08:15)
[2021-01-28] MEDS: Insulin GLARGINE 100 un/ml 10 ml VIAL SUBCUT SCH (08:16)
[2021-01-28 12:46] VITALS: BP 131/76
== END 2021-01-28 14:15 | DRG 757 ==
LOC: MEDTELE 10:39 → ED 10:39 → MEDTELE 16:36 → ICU 01-19 09:14 → SUATTDRO 01-19 09:15 → MEDTELE 01-21 07:21
PROVIDERS: ADMIT Internal Medicine; ATTEND Internal Medicine

== ENCOUNTER 2021-02-25 07:18 | Observation (INO) ==
[2021-02-25 07:51] LABS: Venous Bicarbonate HCO3 27.7 mmol/L (24-28)
[2021-02-25 07:56] LABS: ABS Basophils 0.1 10^3/ul (0-0.2); ABS Eosinophils 0.6 10^3/ul (0-0.6); ABS Lymphocytes 0.6 10^3/ul (1.0-4.8); ABS Monocytes 0.8 10^3/ul (0-0.8); ABS Neutrophils 6.9 10^3/ul (1.5-7.7); Eosinophil % 6.7 %; Hematocrit 38 % (42-52); Hemoglobin 12.8 g/dL (14.0-18.0); Lymphocyte % 6.7 %; Mean Corpuscular HGB Conc 34 g/dL (31-36); Mean Corpuscular Hemoglobin 31 pg (27-31); Mean Corpuscular Volume 93 fL (80-94); Mean Platelet Volume 8.8 fL (7.4-10.4); Platelet Count 228 10^3/uL (150-450); Red Cell Distribution Width 16 % (10-15); White Blood Count 8.9 10^3/uL (3.5-10.8)
[2021-02-25 08:13] LABS: ALT 13 U/L (7-52); AST 15 U/L (13-39); Albumin 3.5 g/dL (3.2-5.2); Albumin/Globulin Ratio 0.9 (1-3); Alkaline Phosphatase 62 U/L (35-149); Anion Gap 7 mmol/L (2-11); Blood Urea Nitrogen 13 mg/dL (6-24); C Reactive Protein 33.39 mg/L (<8.01); CO2 Carbon Dioxide 28 mmol/L (22-32); Calcium 8.8 mg/dL (8.6-10.3); Chloride 103 mmol/L (101-111); EGFR African American 88.9 (>60); EGFR Non-African American 73.5 (>60); Globulin 3.7 g/dL (2-4); Glucose 120 mg/dL (70-100); Magnesium 2.1 mg/dL (1.9-2.7); Potassium 3.7 mmol/L (3.5-5.0); Sodium 138 mmol/L (135-145); Total Protein 7.2 g/dL (6.4-8.9)
[2021-02-25 08:18] LABS: Troponin I 0.53 ng/mL (<0.03)
[2021-02-25 08:37] LABS: Acetaminophen < 15 mcg/mL; Alcohol, S < 13 mg/dL (<13)
[2021-02-25 08:53] LABS: TSH Ultra Thyroid Stim Horm 8.66 mcIU/mL (0.34-5.60)
[2021-02-25] MEDS ORDERED: Albuterol 2.5mg/3 ml (0.083%) NEB.SOLN INH PRN (11:02)
[2021-02-25 11:07] LABS: PCO2 Arterial 34 mmHg (35-45); PO2 Arterial 99 mmHg (80-100)
[2021-02-25 11:44] LABS: Rapid COVID-19 Molecular Undetected (Undetected)
[2021-02-25] MEDS ORDERED: Dextrose 50% Syringe 50 ml 25 GM/50 ML SYRINGE IV PUSH PRN (12:02)
[2021-02-25 12:06] LABS: Vitamin B12 743 pg/mL (180-914)
[2021-02-25] MEDS: Mometasone/Formoter 100/5 MDI INH SCH (20:14)
[2021-02-26] MEDS: Mometasone/Formoter 100/5 MDI INH SCH ×2 (08:31→19:33)
[2021-02-26] MEDS: Isosorbide Mononit ER 60mg TAB PO SCH (09:42)
[2021-02-26] MEDS: Insulin GLARGINE 100 un/ml 10 ml VIAL SUBCUT SCH (09:43)
[2021-02-27] MEDS ORDERED: SPIRIVA Respimat (tiotropium) 2.5 mcg/inh Inhaler INH SCH (09:00)
[2021-02-27] MEDS: Isosorbide Mononit ER 60mg TAB PO SCH (09:02)
[2021-02-27] MEDS: Insulin GLARGINE 100 un/ml 10 ml VIAL SUBCUT SCH (09:04)
[2021-02-27] MEDS: Mometasone/Formoter 100/5 MDI INH SCH (09:21)
[2021-02-27] MEDS ORDERED: Furosemide 20 mg/2 ml IV VIAL IV SLOW PU ONE (11:00)
[2021-02-27 12:01] VITALS: BP 139/73
== END 2021-02-27 13:05 ==
LOC: MEDTELE 07:18 → ED 07:18 → SUATTDRO 10:25
PROVIDERS: ADMIT Internal Medicine; ATTEND Internal Medicine

== ENCOUNTER 2021-05-04 16:21 | Inpatient (IN) ==
[2021-05-04] MEDS ORDERED: Albuterol HFA INHALER 8 gm MDI INH ONE (17:42)
[2021-05-04] MEDS ORDERED: methylPREDNISolone 125 mg 2 ML VIAL IV ONE (17:44)
[2021-05-04 18:29] LABS: ABS Basophils 0.1 10^3/ul (0-0.2); ABS Eosinophils 0.1 10^3/ul (0-0.6); ABS Lymphocytes 0.5 10^3/ul (1.0-4.8); ABS Monocytes 0.6 10^3/ul (0-0.8); ABS Neutrophils 8.7 10^3/ul (1.5-7.7); Eosinophil % 1.1 %; Hematocrit 39 % (42-52); Hemoglobin 12.9 g/dL (14.0-18.0); Lymphocyte % 4.5 %; Mean Corpuscular HGB Conc 33 g/dL (31-36); Mean Corpuscular Hemoglobin 29 pg (27-31); Mean Corpuscular Volume 89 fL (80-94); Mean Platelet Volume 8.7 fL (7.4-10.4); Platelet Count 255 10^3/uL (150-450); Red Blood Count 4.42 10^6 /uL (4.18-5.48); Red Cell Distribution Width 18 % (10-15); White Blood Count 9.9 10^3/uL (3.5-10.8)
[2021-05-04] MEDS ORDERED: Azithromycin 500 mg/250 ml NS 500 MG/250 ML BAG IVPB ONE (18:35)
[2021-05-04] MEDS ORDERED: cefTRIAXone 1 gm/50 mL NS BAG 1 GM/50 ML BAG IV ONE (18:36)
[2021-05-04 18:43] LABS: Influenza A Molecular Negative (Negative); Influenza B Molecular Negative (Negative)
[2021-05-04 18:47] LABS: ALT 27 U/L (7-52); AST 20 U/L (13-39); Albumin 4.3 g/dL (3.2-5.2); Albumin/Globulin Ratio 1.3 (1-3); Alkaline Phosphatase 62 U/L (35-149); Anion Gap 10 mmol/L (2-11); Blood Urea Nitrogen 15 mg/dL (6-24); CO2 Carbon Dioxide 27 mmol/L (22-32); Calcium 9.2 mg/dL (8.6-10.3); Chloride 103 mmol/L (101-111); Globulin 3.4 g/dL (2-4); Glucose 129 mg/dL (70-100); Magnesium 1.9 mg/dL (1.9-2.7); Potassium 3.3 mmol/L (3.5-5.0); Sodium 140 mmol/L (135-145); Total Protein 7.7 g/dL (6.4-8.9)
[2021-05-04 18:48] LABS: PCO2 Arterial 35 mmHg (35-45); PO2 Arterial 65 mmHg (80-100)
[2021-05-04 18:51] LABS: Troponin I 0.16 ng/mL (<0.03)
[2021-05-04 18:54] LABS: Rapid COVID-19 Molecular Undetected (Undetected)
[2021-05-04] MEDS ORDERED: Furosemide 40 mg/4 ml IV VIAL IV SLOW PU ONE (18:57)
[2021-05-04] MEDS ORDERED: Potassium Chlor 10 meq TAB PO ONE (18:57)
[2021-05-04 19:10] LABS: Activated Partial Thrombo Time 34.1 seconds (26.0-38.0); INR 1.77 (0.86-1.15)
[2021-05-04 19:47] LABS: TSH Ultra Thyroid Stim Horm 5.54 mcIU/mL (0.34-5.60)
[2021-05-04 19:51] LABS: Urine Appearance Cloudy; Urine Bilirubin Negative (Negative); Urine Blood Negative (Negative); Urine Color Yellow; Urine Glucose Negative (Negative); Urine Ketones Negative (Negative); Urine Nitrite Negative (Negative); Urine Protein 3+(>=500 mg/dL) (Negative); Urine Specific Gravity 1.016 (1.002-1.030); Urine Urobilinogen Negative (Negative)
[2021-05-04 20:01] LABS: Urine Bacteria Absent (Absent); Urine Red Blood Cell Trace(0-2/hpf) (Absent); Urine Squamous Epithelial Cell Present (Absent); Urine White Blood Cell Trace(0-5/hpf) (Absent)
[2021-05-04] MEDS ORDERED: Ondansetron 4 mg VIAL 2 MG/ML 2 ml VIAL IV PRN (20:10)
[2021-05-04] MEDS ORDERED: Dextrose 50% Syringe 50 ml 25 GM/50 ML SYRINGE IV PUSH PRN (20:15)
[2021-05-04] MEDS ORDERED: Furosemide 100 mg/10 ml IV VIAL IV ONE (20:21)
[2021-05-04] MEDS ORDERED: Albuterol 2.5mg/3 ml (0.083%) NEB.SOLN INH PRN (20:37)
[2021-05-04] MEDS ORDERED: Iodixanol (CONTRAST) 320 MG/ML 100 ML SDV IV ONE (21:30)
[2021-05-05 00:33] LABS: Troponin I 0.16 ng/mL (<0.03)
[2021-05-05 05:45] LABS: ABS Lymphocytes 0.3 10^3/ul (1.0-4.8); ABS Monocytes 0.1 10^3/ul (0-0.8); Hematocrit 38 % (42-52); Hemoglobin 12.4 g/dL (14.0-18.0); Lymphocyte % 4.6 %; Mean Corpuscular HGB Conc 33 g/dL (31-36); Mean Corpuscular Hemoglobin 29 pg (27-31); Mean Corpuscular Volume 90 fL (80-94); Mean Platelet Volume 8.8 fL (7.4-10.4); Platelet Count 213 10^3/uL (150-450); Red Blood Count 4.24 10^6 /uL (4.18-5.48); Red Cell Distribution Width 18 % (10-15); White Blood Count 6.4 10^3/uL (3.5-10.8)
[2021-05-05 06:09] LABS: Calcium 9.2 mg/dL (8.6-10.3); Potassium 3.5 mmol/L (3.5-5.0)
[2021-05-05] MEDS: Isosorbide Mononit ER 60mg TAB PO SCH (08:56)
[2021-05-05] MEDS: Insulin GLARGINE 100 un/ml 10 ml VIAL SUBCUT SCH (09:00)
[2021-05-05] MEDS: Mometasone/Formoter 100/5 MDI INH SCH ×2 (10:04→20:17)
[2021-05-05] MEDS ORDERED: Bumetanide IV 0.25 MG/ML 4 ml VIAL (1 mg) SLOW PUSH ONE ×2 (14:00→20:00)
[2021-05-05] MEDS ORDERED: Nitro 2% OINT (Nitroglycerin) 1 INCH/PAK TOPICAL ONE (14:36)
[2021-05-05] MEDS ORDERED: Potassium Chlor 20 meq TAB.ER PO ONE (14:56)
[2021-05-05] MEDS ORDERED: Nitro Patch/OINT Remove PATCH PATCH OFF ONE (21:00)
[2021-05-06] MEDS ORDERED: Albuterol/Ipratropium NEB.SOL (2.5/0.5 MG) 3 ML NEB.SOLN INH PRN (00:19)
[2021-05-06 05:00] LABS: ABS Lymphocytes 0.7 10^3/ul (1.0-4.8); ABS Monocytes 0.9 10^3/ul (0-0.8); ABS Neutrophils 9.3 10^3/ul (1.5-7.7); Eosinophil % 0.3 %; Hematocrit 38 % (42-52); Hemoglobin 12.5 g/dL (14.0-18.0); Lymphocyte % 6.1 %; Mean Corpuscular HGB Conc 33 g/dL (31-36); Mean Corpuscular Hemoglobin 30 pg (27-31); Mean Corpuscular Volume 89 fL (80-94); Mean Platelet Volume 8.8 fL (7.4-10.4); Platelet Count 227 10^3/uL (150-450); Red Cell Distribution Width 18 % (10-15); White Blood Count 10.9 10^3/uL (3.5-10.8)
[2021-05-06 05:14] LABS: Calcium 9.5 mg/dL (8.6-10.3); Magnesium 1.8 mg/dL (1.9-2.7); Potassium 3.4 mmol/L (3.5-5.0)
[2021-05-06] MEDS ORDERED: Potassium Chlor 20 meq TAB.ER PO ONE (08:38)
[2021-05-06] MEDS: Insulin GLARGINE 100 un/ml 10 ml VIAL SUBCUT SCH (08:49)
[2021-05-06] MEDS: Isosorbide Mononit ER 60mg TAB PO SCH (08:58)
[2021-05-06] MEDS ORDERED: Bumetanide IV 0.25 MG/ML 4 ml VIAL (1 mg) SLOW PUSH ONE (09:30)
[2021-05-06] MEDS: Mometasone/Formoter 100/5 MDI INH SCH ×2 (09:43→21:05)
[2021-05-07 06:59] LABS: ABS Basophils 0.1 10^3/ul (0-0.2); ABS Eosinophils 0.1 10^3/ul (0-0.6); ABS Lymphocytes 0.7 10^3/ul (1.0-4.8); ABS Monocytes 0.7 10^3/ul (0-0.8); ABS Neutrophils 5.9 10^3/ul (1.5-7.7); Eosinophil % 1.9 %; Hematocrit 38 % (42-52); Hemoglobin 12.6 g/dL (14.0-18.0); Lymphocyte % 9.7 %; Mean Corpuscular HGB Conc 33 g/dL (31-36); Mean Corpuscular Hemoglobin 29 pg (27-31); Mean Corpuscular Volume 88 fL (80-94); Mean Platelet Volume 8.6 fL (7.4-10.4); Platelet Count 236 10^3/uL (150-450); Red Blood Count 4.35 10^6 /uL (4.18-5.48); Red Cell Distribution Width 18 % (10-15); White Blood Count 7.6 10^3/uL (3.5-10.8)
[2021-05-07 07:15] LABS: Calcium 9.2 mg/dL (8.6-10.3); Magnesium 1.6 mg/dL (1.9-2.7); Potassium 3.2 mmol/L (3.5-5.0)
[2021-05-07] MEDS: Mometasone/Formoter 100/5 MDI INH SCH ×2 (07:55→20:53)
[2021-05-07] MEDS: Isosorbide Mononit ER 60mg TAB PO SCH (08:18)
[2021-05-07] MEDS: Insulin GLARGINE 100 un/ml 10 ml VIAL SUBCUT SCH (08:21)
[2021-05-07] MEDS ORDERED: Magnesium Sulfate 2 gm BAG 2 GM/50 ML BAG IVPB ONE (08:46)
[2021-05-07] MEDS: KCL 20 MEQ/100 ML IVPREMIX 20 MEQ/100 ML BAG IV SCH ×3 (11:35→16:42)
[2021-05-07] MEDS ORDERED: Bumetanide IV 0.25 MG/ML 4 ml VIAL (1 mg) SLOW PUSH ONE ×2 (15:00)
[2021-05-07] MEDS ORDERED: Senna TAB 8.6 mg TAB PO PRN (22:09)
[2021-05-08 05:13] LABS: ABS Basophils 0.1 10^3/ul (0-0.2); ABS Eosinophils 0.3 10^3/ul (0-0.6); ABS Lymphocytes 0.7 10^3/ul (1.0-4.8); ABS Monocytes 0.7 10^3/ul (0-0.8); ABS Neutrophils 6.9 10^3/ul (1.5-7.7); Eosinophil % 2.9 %; Hematocrit 42 % (42-52); Lymphocyte % 8.1 %; Mean Corpuscular HGB Conc 33 g/dL (31-36); Mean Corpuscular Hemoglobin 29 pg (27-31); Mean Corpuscular Volume 88 fL (80-94); Mean Platelet Volume 8.6 fL (7.4-10.4); Platelet Count 249 10^3/uL (150-450); Red Blood Count 4.78 10^6 /uL (4.18-5.48); Red Cell Distribution Width 18 % (10-15); White Blood Count 8.7 10^3/uL (3.5-10.8)
[2021-05-08 05:27] LABS: Calcium 9.9 mg/dL (8.6-10.3); Potassium 3.5 mmol/L (3.5-5.0); eGFR CKD-EPI 77.1 (>60)
[2021-05-08] MEDS ORDERED: Bumetanide IV 0.25 MG/ML 4 ml VIAL (1 mg) SLOW PUSH ONE (08:06)
[2021-05-08] MEDS: Mometasone/Formoter 100/5 MDI INH SCH (08:26)
[2021-05-08 08:48] VITALS: BP 140/90
[2021-05-08] MEDS: Isosorbide Mononit ER 60mg TAB PO SCH (09:46)
[2021-05-08] MEDS: Insulin GLARGINE 100 un/ml 10 ml VIAL SUBCUT SCH (09:58)
== END 2021-05-08 14:00 | disposition home or self-care (01) | DRG 194 ==
LOC: ED 16:21 → SUATTDRO 21:15 → MED 21:15
PROVIDERS: ADMIT Student in an Organized Health Care Education/Training Program; ATTEND Internal Medicine

== ENCOUNTER 2023-08-05 09:42 | Inpatient (IN) ==
[2023-08-05 10:27] LABS: ABS Basophils 0.1 10^3/uL (0.0-0.1); ABS Lymphocytes 0.5 10^3/uL (1.0-4.8); ABS Monocytes 1.3 10^3/uL (0.0-1.1); ABS Neutrophils 16.9 10^3/uL (1.5-7.6); ABS Nucleated RBC 0.06 10^3/ul; Eosinophil % 0.1 %; Hematocrit 50.9 % (38-53); Lymphocyte % 2.6 %; Mean Corpuscular Hemoglobin 31.3 pg (27-33); Mean Corpuscular Hgb Conc 33.4 g/dL (31-36); Mean Corpuscular Volume 93.6 fL (80-97); Mean Platelet Volume 8.3 fL (7.5-11.2); Nucleated Red Blood Cells % 0.3 %/100WBC (0.0-0.8); Platelet Count 249 10^3/uL (150-450); Red Blood Count 5.44 10^6/uL (4.06-5.63); Red Cell Distribution Width 15.9 % (12-17); White Blood Count 18.8 10^3/uL (3.6-10.2)
[2023-08-05 10:36] LABS: INR 1.44 (0.83-1.13)
[2023-08-05 11:18] LABS: Albumin 4.2 g/dL (3.2-5.2); Calcium 9.5 mg/dL (8.6-10.3); Creatinine, Serum 1.06 mg/dL (0.67-1.17); Globulin 4.3 g/dL (2-4); Potassium 4.9 mmol/L (3.5-5.0); Total Protein 8.5 g/dL (6.4-8.9); eGFR CKD-EPI 71.8 (>60)
[2023-08-05 11:59] LABS: High Sensitivity Troponin 1 Hr 15 pg/mL (<20)
[2023-08-05] MEDS: cefTRIAXone 1 gm/50 mL D5W 1 GM/50 ML BAG IV ONE (13:18)
[2023-08-05 14:33] LABS: C Reactive Protein 78.58 mg/L (<8.01)
[2023-08-05] MEDS ORDERED: Aspirin EC 81 mg TAB.EC (enteric coated) PO PRN (14:55)
[2023-08-05] MEDS ORDERED: Dextrose 50% Syringe 50 ml 25 GM/50 ML SYRINGE IV PUSH PRN (15:14)
[2023-08-05] MEDS: Azithromycin 500 mg/250 ml NS 500 MG/250 ML BAG IVPB ONE (15:24)
[2023-08-05] MEDS: DULoxetine DR 60 mg CAP PO SCH (17:26)
[2023-08-05] MEDS: Mometasone/Formoter 100/5 MDI INH SCH (17:26)
[2023-08-05] MEDS: Isosorbide Mononit ER 60mg TAB PO SCH (17:26)
[2023-08-05] MEDS: Furosemide 20 mg/2 ml IV VIAL IV ONE (17:27)
[2023-08-06 08:54] LABS: Hematocrit 43.6 % (38-53); Mean Corpuscular Hgb Conc 34.4 g/dL (31-36); Mean Corpuscular Volume 93.2 fL (80-97); Mean Platelet Volume 8.4 fL (7.5-11.2); Platelet Count 207 10^3/uL (150-450); Red Blood Count 4.69 10^6/uL (4.06-5.63); Red Cell Distribution Width 15.4 % (12-17); White Blood Count 14.9 10^3/uL (3.6-10.2)
[2023-08-06 09:20] LABS: Calcium 8.9 mg/dL (8.6-10.3); Creatinine, Serum 1.22 mg/dL (0.67-1.17); Potassium 4.3 mmol/L (3.5-5.0); eGFR CKD-EPI 60.7 (>60)
[2023-08-06 09:57] LABS: ABS Basophils 0.1 10^3/uL (0.0-0.1); ABS Eosinophils 0.1 10^3/uL (0.0-0.5); ABS Lymphocytes 0.9 10^3/uL (1.0-4.8); ABS Monocytes 1.8 10^3/uL (0.0-1.1); ABS Neutrophils 12.1 10^3/uL (1.5-7.6); ABS Nucleated RBC 0.01 10^3/ul; Eosinophil % 0.4 %; Nucleated Red Blood Cells % 0.1 %/100WBC (0.0-0.8)
[2023-08-06] MEDS: cefTRIAXone 1 gm/50 mL D5W 1 GM/50 ML BAG IV SCH (13:15)
[2023-08-06] MEDS: Azithromycin 500 mg/250 ml NS 500 MG/250 ML BAG IVPB SCH (14:14)
[2023-08-06] MEDS: Iodixanol (CONTRAST) 320 MG/ML 100 ML SDV IV ONE (20:13)
[2023-08-07 06:46] LABS: ABS Basophils 0.1 10^3/uL (0.0-0.1); ABS Eosinophils 0.2 10^3/uL (0.0-0.5); ABS Lymphocytes 0.7 10^3/uL (1.0-4.8); ABS Monocytes 1.4 10^3/uL (0.0-1.1); ABS Neutrophils 10.6 10^3/uL (1.5-7.6); ABS Nucleated RBC 0.02 10^3/ul; Eosinophil % 1.4 %; Hematocrit 42.9 % (38-53); Hemoglobin 14.6 g/dL (13.2-16.3); Lymphocyte % 5.5 %; Mean Corpuscular Hemoglobin 31.6 pg (27-33); Mean Corpuscular Hgb Conc 34.1 g/dL (31-36); Mean Corpuscular Volume 92.8 fL (80-97); Mean Platelet Volume 8.2 fL (7.5-11.2); Nucleated Red Blood Cells % 0.1 %/100WBC (0.0-0.8); Platelet Count 209 10^3/uL (150-450); Red Blood Count 4.62 10^6/uL (4.06-5.63); Red Cell Distribution Width 15.6 % (12-17)
[2023-08-07 07:19] LABS: Calcium 8.6 mg/dL (8.6-10.3); Creatinine, Serum 1.04 mg/dL (0.67-1.17); Potassium 4.1 mmol/L (3.5-5.0); eGFR CKD-EPI 73.5 (>60)
[2023-08-07] MEDS ORDERED: Magnesium Hydroxide LIQ 30 ML UDC PO PRN (08:05)
[2023-08-07 13:34] VITALS: BP 120/77
== END 2023-08-07 17:25 | disposition home or self-care (01) | DRG 871 ==
LOC: ED 09:42 → EDHOLD 14:52 → SUATTDRO 14:52 → MED 21:22
PROVIDERS: ADMIT Internal Medicine; ATTEND Hospitalist